=== PATIENT | male | born 1945 ===

== ENCOUNTER 2025-03-22 06:17 | Day surgery (SDC) | payer OTHER ==
[2025-03-22] MEDS: Lactated Ringers 1,000 ML IV SCH (06:58)
--- NOTE | 2025-03-22 07:11 | HP ---
HISTORY AND PHYSICAL HISTORY OF PRESENT ILLNESS: The patient is a 79-year-old male who presents with dysphagia. He was just actually stretched about a month ago. He still has a feeling of tightness in his lower esophagus with some hang up. PAST MEDICAL HISTORY: BPH, sleep apnea, coronary artery disease, hyperlipidemia, hypertension. HOME MEDICATIONS: Sildenafil, clindamycin, losartan, labetalol, iron, amlodipine. ALLERGIES: Lisinopril. PAST SURGICAL HISTORY: Open-heart procedure. SOCIAL HISTORY: Negative. FAMILY HISTORY: Diabetes. REVIEW OF SYSTEMS: CONSTITUTIONAL: Denies fever or chills. CHEST: Denies shortness of breath. CARDIOVASCULAR: Denies chest pain. ABDOMEN: Denies abdominal pain. PHYSICAL EXAMINATION: GENERAL: No acute distress. CARDIOVASCULAR: Regular rate and rhythm. RESPIRATORY: Nonlabored. No shortness of breath. ABDOMEN: Soft. IMPRESSION: Dysphagia. PLAN: EGD with possible dilatation with Dr. Trev Perez. This report was dictated for Dr. Trev Perez by Raine Holland NP.
[2025-03-22 07:13] LABS: Calcium 8.9 mg/dL (8.4-10.2); Carbon Dioxide 27.0 mmol/L (22-30); Creatinine 1 1.12 mg/dL (0.66-1.25); EST GLOMERULAR FILTRATION RATE 67.2 ML/MIN; Glucose 140.0 mg/dL (74-106); Potassium 4.0 mmol/L (3.5-5.1)
[2025-03-22] MEDS ORDERED: propofoL IV ONE ×2 (08:43→08:53)
[2025-03-22 10:04] VITALS: BP 120/68; PULSE 56; RESP 18; TEMP 97; O2SAT 97
--- NOTE | 2025-03-23 15:26 | OP ---
SURGERY DATE/TIME: 03/22/2025 PREOPERATIVE DIAGNOSIS: Persistent dysphagia. Patient did have an esophagogastroduodenoscopy with dilatation about 4 to 5 weeks ago. POSTOPERATIVE DIAGNOSIS: Better but persistent esophageal stricture. PROCEDURE: Esophagogastroduodenoscopy with dilatation, size 19. SURGEON: Trev Perez MD ANESTHESIA: General. COMPLICATIONS: None. CONDITION: Stable. INDICATIONS: Patient has persistent dysphagia. He had a tight stricture. It was dilated initially about 4 to 5 weeks ago. He re-presents at this time. DESCRIPTION OF PROCEDURE AND FINDINGS: Taken to endoscopy, left lateral decubitus position. Scope introduced. Scope could pass the stricture. There was quite a bit of spasm up above the stricture. The stomach was normal; stomach, pylorus, duodenal bulb, second portion of duodenum. Scope looped upon itself satisfactorily. Scope withdrawn back to the midstomach. The balloon was placed down the stomach. It was backed up into the EG junction, direct visualization, insufflated 18 at 1 minute and 19 at 1 minute. The balloon was deflated and the scope pulled through. This certainly had dilated and made some additional progress. He did have a fair amount of spasm. He was placed on Bentyl 10 mg p.o. half hour before meals and instructions were given to his in the waiting room. Patient tolerated the procedure satisfactory.
== END 2025-03-22 10:10 | disposition home or self-care (01) ==
LOC: SDC 06:17
PROVIDERS: ATTEND Surgery
DX: K22.2 Esophageal obstruction (principal); R13.10 Dysphagia, unspecified; I10 Essential (primary) hypertension